=== PATIENT | female | born 1995 | race Caucasian/White ===

== ENCOUNTER 2024-03-30 06:14 | Emergency (ER) | payer OTHER ==
[~2024-03-30] VITALS: Ht 165.1 cm; Wt 60.8 kg
[2024-03-30 06:15] VITALS: BP 111/53; PULSE 88; RESP 16; TEMP 98; O2SAT 100
[2024-03-30 06:40] VITALS: BP 111/53; PULSE 88; RESP 16; TEMP 98
[2024-03-30] MEDS ORDERED: AMOX1TAB8 PO (06:47)
[2024-03-30] MEDS ORDERED: FLUC100T PO (06:54)
[2024-03-30 07:05] VITALS: O2SAT 99
== END 2024-03-30 06:57 | disposition home or self-care (01) ==
LOC: MED 06:14
DX: J02.9 Acute pharyngitis, unspecified (principal)
CPT/HCPCS: 99283